=== PATIENT | male | born 1965 | race Caucasian/White ===

== ENCOUNTER 2019-09-30 18:26 | Emergency (ER) | payer OTHER, SELFPAY ==
[2019-09-30 18:40] VITALS: BP 154/98; PULSE 96; RESP 18; TEMP 36.8; O2SAT 97
--- NOTE | 2019-09-30 19:05 | ED.GENADULT ---
HPI - General Adult General Chief complaint: Unspecified Stated complaint: Knot under chin Time Seen by Provider: 09/30/19 19:05 Source: patient History of Present Illness HPI narrative: Patient presents with a 2-day history of swelling to both salivary glands while eating. Patient states the more he eats the larger the glands get and more tender to touch. Patient denies any drooling no fever no cough no trouble swallowing. Patient denies any prior health history or health problems. Patient states once he is finished eating the swelling and tenderness goes down. No swelling at present. Patient denies any fever denies any exposure to mumps. Related Data Allergies Allergy/AdvReac Type Severity Reaction Status Date / Time shrimp Allergy Hives Verified 09/30/19 18:47 Review of Systems Review of Systems: Narrative: CONSTITUTIONAL: Denies fever, chills, or sweats. EYES: Denies visual changes, redness, or discharge. ENT: Denies rhinorrhea, congestion, sore throat, or otalgia. CARDIOVASCULAR: Denies chest pain, palpitations, or edema. RESPIRATORY: Denies cough or dyspnea. GASTROINTESTINAL: Denies abdominal pain, nausea, vomiting, or diarrhea. GENITOURINARY: Denies dysuria or hematuria. SKIN: Denies rash or itching. MUSCULOSKELETAL: Denies back pain, joint pain, or myalgia. NEUROLOGIC: Denies headache, numbness, or weakness. PSYCHIATRIC: Denies anxiety or depression. PMFSH Comments At time of signature, agree with nursing past medical, surgical, social and family history. There is no relevant family history pertinent to the presenting complaint Exam Narrative: Exam Narrative: GENERAL: Well-appearing, well-nourished, and in no acute distress. HEAD: Normocephalic, atraumatic. EYES: PERRLA and EOMI. ENT: Nares clear, no rhinorrhea or epistaxis. Mucous membranes moist. No lymph node swelling, no neck swelling NECK: Supple. CHEST: Clear to auscultation. No respiratory distress. HEART: Regular rate and rhythm. No murmur heard. Normal peripheral pulses. ABDOMEN: Soft, nontender, nondistended, normal active bowel sounds. EXTREMITIES: Normal range of motion. No edema. SKIN: Warm, dry, no rash. NEURO: No focal deficits. Alert and oriented x3. Bono Coma Scale Eye Opening: Spontaneous 4 Yaneth Coma Scale Motor: Obeys Commands 6 Yaneth Coma Scale Verbal: Oriented 5 Bono Coma Scale Total 15 Discussed negative physical exam with patient at this time. Discussed importance to follow-up with primary care provider in 2 to 3 days for further lab work and imaging. Discussed red flags with patient and when to go to ER. Discussed if any return of symptoms go to ER immediately for further evaluation and treatment. Course Vital Signs Vital signs: Vital Signs Temperature 36.8 C 09/30/19 18:40 Pulse Rate 96 09/30/19 18:40 Respiratory Rate 18 09/30/19 18:40 Blood Pressure 154/98 H 09/30/19 18:40 Pulse Oximetry 97 09/30/19 18:40 Temperature 36.8 C 09/30/19 18:40 Pulse Rate 96 09/30/19 18:40 Respiratory Rate 18 09/30/19 18:40 Blood Pressure 154/98 H 09/30/19 18:40 Pulse Oximetry 97 09/30/19 18:40 Addressed elevated BP today. Today's blood pressure higher than recommended range. Discussed importance of follow -up with PCP and possible termination clerk effects/cardiovascular events related to HTN. Currently patient denies headache, dizziness, vision changes, CP or shortness of breath. Medical Decision Making Vital Signs Vital Signs: Vital Signs Temperature 36.8 C 09/30/19 18:40 Pulse Rate 96 09/30/19 18:40 Respiratory Rate 18 09/30/19 18:40 Blood Pressure 154/98 H 09/30/19 18:40 Pulse Oximetry 97 09/30/19 18:40 Temperature 36.8 C 09/30/19 18:40 Pulse Rate 96 09/30/19 18:40 Respiratory Rate 18 09/30/19 18:40 Blood Pressure 154/98 H 09/30/19 18:40 Pulse Oximetry 97 09/30/19 18:40 Addressed elevated BP today. Today's blood pressure higher than recommended range. Discussed imp
== END 2019-09-30 19:15 | disposition home or self-care (01) ==
PROVIDERS: Emergency Provider Nurse Practitioner Family
DX: K11.5 Sialolithiasis (principal)
CPT/HCPCS: 99213; G0463